=== PATIENT | male | born 1980 | race Caucasian/White ===

== ENCOUNTER 2021-03-04 14:12 | Emergency (ER) | payer MEDICAID ==
[~2021-03-04] VITALS: Ht 172.7 cm; Wt 90.7 kg
[2021-03-04 14:18] VITALS: BP_SYST 131
--- NOTE | 2021-03-04 14:18 | NUR ---
Patient to [facility] for evaluation. Side rails up. Assumed care of pt.
--- NOTE | 2021-03-04 14:20 | NUR ---
pt. bib law enforcement for medical clearance, states has no pain and he is fine, officer states pt. appeared to be shaky and states pt. informed him he takes meds. for shakiness but does not know name of condition or name of med.
--- NOTE | 2021-03-04 14:24 | NUR ---
JEET Oakes at bedside examining patient.
[2021-03-04] MEDS ORDERED: LORazepam 1 MG TABLET PO ONE ×2 (14:30→14:45)
[2021-03-04 15:14] LABS: BASOPHILS # (AUTO) 0.1 K/uL (0.0-0.2); BASOPHILS % (AUTO) 0.7 % (0.0-2.0); EOSINOPHILS % (AUTO) 0.3 % (0.0-4.0); HEMATOCRIT 48.2 % (36-54); HEMOGLOBIN 16.2 g/dL (14.0-18.0); LYMPHOCYTES # (AUTO) 1.3 K/uL (1.0-5.5); LYMPHOCYTES % (AUTO) 13.6 % (20.5-51.5); MEAN CORPUSCULAR HEMOGLOBIN 29 pg (27-31); MEAN CORPUSCULAR HGB CONC 34 % (32-36); MEAN CORPUSCULAR VOLUME 86 fL (79.0-98.0); MONOCYTES # (AUTO) 0.6 K/uL (0.0-1.0); MONOCYTES % (AUTO) 6.2 % (1.7-9.3); NEUTROPHILS # (AUTO) 7.5 K/uL (1.8-7.7); NEUTROPHILS % (AUTO) 79.2 % (40.0-70.0); PLATELET COUNT (AUTO) 280 K/uL (130-430); RED BLOOD CELL COUNT(AUTO) 5.61 MIL/uL (4.2-6.2); RED CELL DISTRIBUTION WIDTH 13.1 % (9.0-15.0); WHITE BLOOD COUNT (AUTO) 9.5 K/uL (4.8-10.8)
--- NOTE | 2021-03-04 15:17 | NUR ---
Pt in hallway eating without difficulties. awaiting for lab results. officer at bedside.
[2021-03-04 15:24] LABS: ANION GAP 8 (5-15); CALCIUM 9.4 mg/dL (8.4-11.0); CHLORIDE 104 mmol/L (98-107); CREATININE 1.14 mg/dL (0.55-1.30); GLUCOSE 94 mg/dL (70-99); POTASSIUM 4.2 mmol/L (3.5-5.1); SODIUM SERUM 140 mmol/L (136-145); UREA NITROGEN, BLOOD 22 mg/dL (8-21)
[2021-03-04 15:28] LABS: ALANINE AMINOTRANSFERASE 48 U/L (12-78); ALBUMIN 4.5 g/dL (3.4-4.8); ASPARTATE AMINOTRANSFERASE 26 U/L (10-37); TOTAL BILIRUBIN 0.4 mg/dL (0.0-1.0)
[2021-03-04 15:34] LABS: GFR AFRICAN AMERICAN 92 mL/min (>90)
[2021-03-04 15:35] LABS: ACETAMINOPHEN < 1 ug/mL (1-30); ALCOHOL, BLOOD < 3 mg/dL (<10)
[2021-03-04 16:12] LABS: CLARITY/URINE CLEAR (CLEAR); COLOR,URINE YELLOW (YELLOW); GLUCOSE,URINE NEGATIVE (NEGATIVE); KETONES,URINE TRACE (NEGATIVE); LEUKOCYTE ESTERASE ,URINE NEGATIVE (NEGATIVE); NITRITE, URINE NEGATIVE (NEGATIVE); PH,URINE 6.5 (5.0-8.0); PROTEIN URINE TRACE (NEGATIVE); UROBILINOGEN,URINE 0.2 (0.2-1.0)
[2021-03-04 16:25] LABS: BLOOD, URINE TRACE (NEGATIVE)
[2021-03-04 16:26] LABS: BILIRUBIN,URINE NEGATIVE (NEGATIVE)
[2021-03-04 16:28] LABS: BACTERIA,URINE FEW /HPF (None Seen); WBC,URINE 0-3 /HPF (0-3)
[2021-03-04 16:29] LABS: BARBITURATE, URINE NEGATIVE (NEG <=200); BENZODIAZEPINE, URINE NEGATIVE (NEG <=150); COCAINE, URINE NEGATIVE (NEG <=150); METHAMPHETAMINES SCREEN,URINE NEGATIVE (NEG <=500); OPIATE, URINE NEGATIVE (NEG <=100); PHENCYCLIDINE SCREEN,URINE NEGATIVE (NEG <=25); UR TRICYCLIC ANTIDEPRESSANTS NEGATIVE (NEG <=300); URINE AMPHETAMINE NEGATIVE (NEG <=500); URINE METHADONE NEGATIVE (NEG <=200); URINE OXYCODONE SCREEN NEGATIVE (NEG <=100); URINE PROPOXYPHENE SCREEN NEGATIVE (NEG <=300)
[2021-03-04 16:30] LABS: CANNABINOID, URINE NEGATIVE (NEG <=50)
--- NOTE | 2021-03-04 16:33 | NUR ---
Patient resting quietly. No acute distress noted. Vital signs within normal range. AWAITING FOR DISPOSITION.
[2021-03-04 16:51] VITALS: BP_SYST 125
--- NOTE | 2021-03-04 16:52 | NUR ---
[facility] [employer] AND PT given written and verbal discharge instructions and verbalizes understanding. ER MD discussed with patient the results and treatment provided. Patient in stable condition. ID arm band removed. Patient educated on pain management and to follow up with PMD. Pain Scale 0/10. Opportunity for questions provided and answered. Medication side effect fact sheet provided. PT TAKEN INTO CUSTODY FOR OK TO BOOK.
== END 2021-03-04 16:51 ==
LOC: SED 14:12
DX: F10.20 Alcohol dependence, uncomplicated (principal); Z79.899 Other long term (current) drug therapy; Y90.0 Blood alcohol level of less than 20 mg/100 ml
CPT/HCPCS: 36415; 80053; 80307; 81000; 82140; 83605; 85025; 86886; 86900; 86901; 87040; 93005; 99284; G0480; G0481; G0482